=== PATIENT | female | born 2000 ===

== ENCOUNTER 2020-09-02 14:15 | Outpatient (REF) | payer BC, SELFPAY ==
[2020-09-02 20:58] LABS: HCT 37.9 % (36.0-46.0); HGB 12.1 g/dL (11.2-15.7); MCH 28.7 pg (27.0-33.0); MCHC 31.9 % (32.0-36.0); MPV 10.6 fL (8.0-11.0); Platelet Count 288 10^3/uL (130-400); RBC 4.21 10^6/uL (3.93-5.22); RDW 12.7 % (11.7-14.6); RDW-SD 40.5 fL; WBC 8.33 10^3/uL (4.4-10.8)
[2020-09-02 21:34] LABS: TSH 2.73 uIU/mL (0.36-3.74)
== END 2020-09-02 14:35 ==
LOC: NCHCN 14:15
PROVIDERS: Visit Provider Registered Nurse
DX: R07.9 Chest pain, unspecified (principal); R00.2 Palpitations
CPT/HCPCS: 85027; 84443